=== PATIENT | female | born 1955 | race Caucasian/White ===

== ENCOUNTER → 2019-01-23 | Outpatient (CLI) | payer BC | LOC: ZCOL.LAB 11:46 | DX: E11.621 Type 2 diabetes mellitus with foot ulcer (principal) ==

== ENCOUNTER → 2019-08-23 | Outpatient (CLI) | payer BC | LOC: ZCOL.LAB 14:37 → COL.LAB 14:37 | DX: E11.621 Type 2 diabetes mellitus with foot ulcer (principal); E11.69 Type 2 diabetes mellitus with other specified complication; M86.9 Osteomyelitis, unspecified; L97.509 Non-pressure chronic ulcer of other part of unspecified foot with unspecified severity ==

== ENCOUNTER → 2019-11-15 | Outpatient (CLI) | payer BC | LOC: ZCOL.LAB 15:03 | DX: E11.621 Type 2 diabetes mellitus with foot ulcer (principal); T14.8XXA Other injury of unspecified body region, initial encounter ==

== ENCOUNTER 2020-06-16 11:03 | Emergency (ER) | payer OTHER ==
[~2020-06-16] VITALS: Ht 154.9 cm; Wt 44.5 kg
[2020-06-16 11:11] VITALS: TEMP 98.7
[2020-06-16] MEDS ORDERED: PLAVIX 75MG TAB75 MG PO (11:24)
[2020-06-16] MEDS ORDERED: PRINIVIL5 MG PO (11:24)
[2020-06-16] MEDS ORDERED: COREG 6.256.25 MG/TA PO (11:25)
[2020-06-16] MEDS ORDERED: LIPITOR 80MG80 MG PO (11:25)
[2020-06-16] MEDS ORDERED: BUMEX 1MG TA1 MG/TA1 PO (11:25)
[2020-06-16] MEDS ORDERED: GLUCOPHAGE XR500 M1 PO (11:26)
[2020-06-16] MEDS ORDERED: NEURONTIN300 MG/CAP PO (11:26)
[2020-06-16] MEDS ORDERED: K-DUR20 MEQ PO (11:27)
[2020-06-16] MEDS ORDERED: PHENERGAN 25 TA25 MG PO (11:27)
[2020-06-16 12:25] LABS: ARTERIAL BLD GAS O2 SATURATION 97.3 % (92-100); ARTERIAL BLD GAS TCO2 CT 14.6; ARTERIAL BLOOD GAS BASE EXCESS -10.4 (-2-2); ARTERIAL BLOOD GAS HCO3 13.8 meq/L (22-26); ARTERIAL BLOOD GAS PCO2 25.1 mmHg (35-45); ARTERIAL BLOOD GAS PO2 95.6 mmHg (80-100); ARTERIAL BLOOD GAS pH 7.36 (7.35-7.45)
[2020-06-16 12:25] LABS: MEAN CELL VOLUME 95 fl (80.0-100.0); MEAN CORPUSCULAR HGB CONC 32 g/dl (33.0-37.0); MEAN PLATELET VOLUME 8.7 fl (7.4-10.4); PLATELET COUNT 888 K/mm3 (130-400); RED BLOOD COUNT 2.54 M/mm3 (4.10-5.30); REDCELL DISTRIBUTION WIDTH-CV 14.3 % (11.5-14.5)
[2020-06-16 12:32] LABS: HEMATOCRIT 24.1 % (37.0-47.0); HEMOGLOBIN 7.6 g/dl (12.5-16.0); MEAN CORPUSCULAR HEMOGLOBIN 30 pg (27.0-31.0)
[2020-06-16 12:41] LABS: ALBUMIN 2.9 gm/dL (3.5-5.0); BILIRUBIN,TOTAL 0.6 mg/dL (0.0-1.0); CALCIUM 8.3 mg/dL (8.4-10.2); CREATININE, serum 1.08 (0.52-1.25); POTASSIUM 3.8 mmol/L (3.4-5.0); TOTAL PROTEIN 6.7 gm/dL (6.4-8.2)
[2020-06-16 12:50] LABS: BAND 19 % (0-10); HYPOCHROMIA 3+; LYMPHOCYTE 1 % (20.0-51.0); METAMYELOCYTE 1 % (0-0); NEUTROPHILS 77 % (42.0-75.2); PLATELET ESTIMATE INCREASED (NORMAL)
[2020-06-16 16:13] LABS: COLLECTION METHOD CLEAN CATCH
[2020-06-16 16:24] LABS: PH 5 (5-8); SQUAMOUS EPITHELIAL 0-2 /hpf; URINE APPEARANCE Hazy; URINE BACTERIA None Seen /hpf; URINE BILIRUBIN Negative (NEGATIVE); URINE BLOOD 2+ (NEGATIVE); URINE COLOR Yellow; URINE GLUCOSE Negative (NEGATIVE); URINE KETONE Trace (NEGATIVE); URINE LEUKOCYTE ESTERASE Negative (NEGATIVE); URINE NITRATE Negative (NEGATIVE); URINE PROTEIN(semi-quant) Negative (NEGATIVE); URINE RBC 20-50 /hpf; URINE UROBILINOGEN Negative (NEGATIVE)
[2020-06-16 18:12] VITALS: BP 115/62; PULSE 124
== END 2020-06-16 18:15 | disposition short-term general hospital (02) ==
LOC: COL.ER 11:03
PROVIDERS: Family Medicine
DX: D72.829 Elevated white blood cell count, unspecified (principal); I25.10 Atherosclerotic heart disease of native coronary artery without angina pectoris; Z88.2 Allergy status to sulfonamides; Z88.1 Allergy status to other antibiotic agents; Z79.02 Long term (current) use of antithrombotics/antiplatelets; Z79.84 Long term (current) use of oral hypoglycemic drugs
CPT/HCPCS: J7030; J7120

== ENCOUNTER 2020-07-02 13:12 | Inpatient (IN) | payer OTHER ==
[~2020-07-02] VITALS: Ht 154.9 cm; Wt 50.0 kg
[~2020-07-02 13:12] MED LIST: BUMEX 1MG TA1 MG/TA1 PO; COREG 6.256.25 MG/TA PO; GLUCOPHAGE XR500 M1 PO; K-DUR20 MEQ PO; LIPITOR 80MG80 MG PO; NEURONTIN300 MG/CAP PO; PHENERGAN 25 TA25 MG PO; PLAVIX 75MG TAB75 MG PO; PRINIVIL5 MG PO
[2020-07-02] MEDS ORDERED: SENOKOT S 50 MG1 TAB PO (14:57)
[2020-07-02] MEDS ORDERED: PERCOCET 325 MG1 TAB PO (15:00)
[2020-07-02] MEDS ORDERED: ASPIRIN 81M81 MG/TA2 PO (15:09)
[2020-07-02] MEDS ORDERED: MASON NATURAL2000 IU PO (15:12)
[2020-07-02 16:00] VITALS: BP 171/89; PULSE 96; TEMP 98.5
[2020-07-02] MEDS ORDERED: CYANOCOBAL1000 MCG/M (16:00)
[2020-07-02] MEDS ORDERED: MELATIN 3 MG-11 TAB PO (16:29)
[2020-07-02] MEDS ORDERED: PROTONIX 40MG T40 MG PO (16:30)
[2020-07-02] MEDS ORDERED: ZOSYN 4 GM-0.51 PD1 IV (16:35)
[2020-07-02] MEDS ORDERED: VANCOMYCIN 11 G/VIA1 IV (16:37)
--- NOTE | 2020-07-02 19:47 | NUR ---
RECEIVED CHANGE OF SHIFT REPORT FROM DAY SHIFT NURSE.
--- NOTE | 2020-07-02 21:41 | NUR ---
Patient arrived this afternoon from [facility] via wheelchair. Her weight was taken and she was placed in room #337. Patient required a ilya lift to be able to transfer from the wheelchair to her recliner. Patient's was placed on the visitor list and he was able to come stay with patient for a short period of time. 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 Patient has right arm swelling and this was addressed prior to coming to [facility]. They did an ultra sound study, MRI, Xrays and all results showed swelling but no other findings per report that was received by MARKY Kapoor at [place]. Patient has a Hx of CHF and will be placed on daily weights. Patient arrived with a stage II on her right buttock cheek. She has a mepilex in place. Patient had her last BM yesterday per nurse. This information was communicated to the night nurse.
[2020-07-03 05:19] VITALS: BP 149/86; PULSE 96; TEMP 98.7
--- NOTE | 2020-07-03 07:36 | NUR ---
CHANGE OF SHIFT REPORT GIVEN TO DAY SHIFT NURSEBALWINDER.
--- NOTE | 2020-07-03 10:04 | NUR ---
PT RESTING IN BED AT BEDSIDE SHIFT REPORT. DENIED PAIN AT THIS TIME. IV ZOSYN COMPLETED AND IV STOPPED.
--- NOTE | 2020-07-03 10:06 | NUR ---
DR. NOBLES CALLED WITH NO ANSWER. MID-LEVEL LUCA CALLED, PT CRYING OUT IN PAIN AFTER GETTING UP TO COMMODE WITH OT. PT GIVEN PERCOCET AND HOUR LATER STILL IN PAIN, MID-LEVEL ORDERED PRN MORPHINE VIA IV. 30 MINUTES AFTER INFUSION PT CONTINUES TO CRY OUT IN PAIN. ICE THERAPY APPLIED AND EXTREMITY HAS BEEN ELEVATED. DR. NOBLES TO FOLLOW UP WITH PT.
[2020-07-03] MEDS ORDERED: GLUCOPHAGE1000 MG PO (10:50)
--- NOTE | 2020-07-03 13:42 | NUR ---
Vancomycin Initial Dosing Pharmacy Note Ordering provider: Aakash Schuler MD Indication/duration: DM foot wounds LABS: SCr 0.59, GFR >60, Vancomycin trough (06/29/20 from outside facility) 11.7 Recommendation: Continue Vancomycin 1 gm IV q24h and check a Vancomycin trough on 07/04/20. Pharmacy will continue to closely monitor. Maintenance dose: 1 gram every 24 hours Trough goal: 10-15 ug/mL
--- NOTE | 2020-07-03 19:30 | NUR ---
Patient resting in bed. Vancomycin infusing to PICC. at [facility]. No complaints at this time.
--- NOTE | 2020-07-03 19:31 | NUR ---
PT CALMED DOWN ONCE THERAPIES WERE DONE. STATED SHE FELT LIKE THE PAIN MEDICATION WAS FINALLY WORKING. PT DID NOT C/O MUCH PAIN THROUGHOUT THE AFTERNOON WHEN WAS THERE. ROLLED TO GET ONTO BEDPAN WITHOUT COMPLAINT. RECEIEVED PRN PERCOCET THREE TIMES TODAY. AND FENTANYL PATCH APPLIED TO LEFT UPPER CHEST TODAY. NEW DRSG PLACED TO BUTTOCKS PRESSURE INJURY. PT HAD LOOSE STOOL TODAY.
--- NOTE | 2020-07-04 01:03 | NUR ---
Patient had bowel movement in bed casanova. Charisse care provided.
--- NOTE | 2020-07-04 04:35 | NUR ---
Patient called complaining of an upset stomach. Patient vomitted once. Called YESICA Echeverria, and she gave an order for zofran. Patient was cleaned up and zofran was administered.
[2020-07-04 05:03] VITALS: BP 135/73; PULSE 72; TEMP 97.2
--- NOTE | 2020-07-04 06:24 | NUR ---
Patient still feeling a little nauseous but has not thrown up again.
[2020-07-04 06:40] LABS: BASO # 0.1 (0.0-0.2); BASO % 0.8 % (0.0-2.0); EOS # 0.4 (0.0-0.7); EOS % 2.8 % (0-4.0); GRAN # 13.6 (1.4-6.5); GRAN % 87.9 % (42.2-75.2); LYMPH # 0.5 (1.2-3.4); LYMPH % 3.2 % (20.0-51.0); MEAN CELL VOLUME 92 fl (80.0-100.0); MEAN CORPUSCULAR HGB CONC 33 g/dl (33.0-37.0); MONO # 0.7 (0.1-0.6); MONO % 4.5 % (1.7-9.3); PLATELET COUNT 454 K/mm3 (130-400); RED BLOOD COUNT 2.73 M/mm3 (4.10-5.30); REDCELL DISTRIBUTION WIDTH-CV 15.7 % (11.5-14.5)
[2020-07-04 06:47] LABS: HEMATOCRIT 25.2 % (37.0-47.0); HEMOGLOBIN 8.2 g/dl (12.5-16.0); MEAN CORPUSCULAR HEMOGLOBIN 30 pg (27.0-31.0)
[2020-07-04 06:55] LABS: ALANINE AMINOTRANSFERASE 8 U/L (4-34); ALBUMIN 2.2 gm/dL (3.5-5.0); ALKALINE PHOSPHATASE 94 U/L (50-136); ANION GAP 4 mmol/L (7-16); AST,SGOT 20 U/L (15-37); BILIRUBIN,TOTAL 0.4 mg/dL (0.0-1.0); BLOOD UREA NITROGEN 11 mg/dL (7-17); CARBON DIOXIDE 26 mmol/L (22-30); CHLORIDE 103 mmol/L (98-107); CREATININE, serum 0.62 (0.52-1.25); GLUCOSE 134 mg/dL (74-106); POTASSIUM 3.8 mmol/L (3.4-5.0); SODIUM 133 mmol/L (137-145); TOTAL PROTEIN 5.5 gm/dL (6.4-8.2)
[2020-07-04 07:08] LABS: TROPONIN-I < 0.012 ng/mL (0.000-0.035)
--- NOTE | 2020-07-04 13:05 | NUR ---
SW met with patient to conduct intake evaluation. Patient lives at home in [place] with her Gerber (P# [phone]) and daughter Deyanira (P# [phone]). Prior to amputation, patient was independent with activity and required no DME. Patient's PCP is Nikki Carroll, and she uses [facility] for medications. Patient plans to return home with Gerber and Deyanira after discharge from [facility]. Patient would like to obtain information regarding prothesis for her right leg and supports for missing left toes. Patient does not have DPOA-HC. Patient states she will have to think about filling out paperwork. Please check back with patient 07/05. Patient denies any further questions or concerns at this time. Social work will continue to follow.
--- NOTE | 2020-07-04 15:19 | NUR ---
Patient's contacted LIBERTY due to medical necessity of an xray done on his . SW stated that the physician would determine medical necessity and that would need to call to speak with MD Monday to inquire. reported that he had been filling out paperwork for disability for his in [place] and wanted to know the status of paperwork. SW advised that call his contact to disability for information as case management would not have access to these records.
[2020-07-04 17:22] VITALS: BP 131/60; PULSE 102; TEMP 98.7
--- NOTE | 2020-07-04 18:24 | NUR ---
PATIENT HAD EPISODE OF UPSET STOMACH AND NAUSEA AT THE BEGINNING OF SHIFT. PATIENT GIVEN PRN IV ZOFRAN. PATIENT REFUSED VITAMINS DUE TO UPSET STOMACH, BUT OTHERWISE TOOK ALL OTHER SCHEDULED MEDICATIONS. PATIENT PROVIDED WITH PAIN MEDICATION AND REPOSITIONING NEEDED THROUGHOUT THE SHIFT. RUE AND RLE ELEVATED ON PILLOWS. ICE PACKS TO RUE AND LLE. CALL LIGHT WITHIN REACH. WILL REPORT OFF TO ONCOMING NURSE.
[2020-07-04 18:41] LABS: CREATININE, serum 0.68 (0.52-1.25)
--- NOTE | 2020-07-05 | NUR ---
PT RESTING IN BED.A&OX4. PLEASANT AND COOPERATIVE. SEE DRSG CHANGE COMPLETED TO BLE'S. PT TOLERATED WELL. CHANGED SACRAL DRSG WELL. SEE MAR FOR PAIN MEDS GIVEN. SHIFT ASSESSMENT COMPLETED. PT RUE SWOLLEN- PT REPORTED HAD AN INJURY TO IT. NO FRACTURE, JUST TISSUE DAMAGE. PREVENTS [place] PLANNER AND LIMITS ROM. PT TURNED FREQUENTLY TO OFF SET PRESSURE TO SACRAL AREA.
[2020-07-05 06:05] VITALS: BP 138/55; PULSE 91; TEMP 98
[2020-07-05 06:35] LABS: BASO # 0.1 (0.0-0.2); EOS # 0.4 (0.0-0.7); EOS % 3.8 % (0-4.0); GRAN # 8.6 (1.4-6.5); GRAN % 79.7 % (42.2-75.2); LYMPH # 0.8 (1.2-3.4); LYMPH % 7.3 % (20.0-51.0); MEAN CELL VOLUME 95 fl (80.0-100.0); MEAN CORPUSCULAR HGB CONC 32 g/dl (33.0-37.0); MEAN PLATELET VOLUME 8.2 fl (7.4-10.4); MONO # 0.8 (0.1-0.6); MONO % 7.6 % (1.7-9.3); PLATELET COUNT 434 K/mm3 (130-400); REDCELL DISTRIBUTION WIDTH-CV 15.5 % (11.5-14.5)
[2020-07-05 06:40] LABS: HEMATOCRIT 23.7 % (37.0-47.0); HEMOGLOBIN 7.6 g/dl (12.5-16.0); MEAN CORPUSCULAR HEMOGLOBIN 30 pg (27.0-31.0)
--- NOTE | 2020-07-05 14:55 | NUR ---
Patient tolerated diet well this shift. No reports of nausea. Patient was a two person assist with using the ilya lift to the bed side commode and back to her bed. Patient also was a one person assist to a standing position using gait belt. Patient was not able to be lifted by staff and she was weight until the bed was placed in a high enough position so patient could stand on her left foot with camboot. She was able to stand for 52 seconds with this nurse holding on to her. She was then positioned back in bed. Nurse reviewed exercises with patient that she had been given by therapy and patient reported that she would be doing those exercises through the day. Patient demonstrated the excercises to this nurse. Patient has ice applied to right leg and to right arm at this time. Patient still has edema to the right upper inner arm, but is not red or warm. Patient's stopped by this morning and dropped off some rainey and misc. items for patient and patient's took her dirty blanket home to be washed. Will continue to monitor.
[2020-07-05 18:34] VITALS: BP 142/71; PULSE 100; TEMP 98.6
--- NOTE | 2020-07-05 19:22 | NUR ---
Patient tolerated her supper well. Currently resting in bed, call light in reach and bed alarm set.
--- NOTE | 2020-07-05 20:30 | NUR ---
PT RESTING IN BED. NO DISTRESS. TALKING ON HER CELL PHONE. NO NEEDS AT THIS TIME. CALL LIGHT IN REACH BED ALARM SET.
--- NOTE | 2020-07-05 21:48 | NUR ---
PT C/O NAUSEA. GAVE ZOFRAN IV. SEE MAR.
[2020-07-06 04:09] VITALS: BP 135/62; PULSE 94; TEMP 98.6
--- NOTE | 2020-07-06 05:26 | NUR ---
PT HAS RESTED PERIODICALLY THROUGH THE NIGHT. PAIN CONTROLLED WITH FENTANYL PATCH TO LT CHEST AND PERCOCET FOR BREAKTHROUGH PAIN.
[2020-07-06 06:09] LABS: BASO # 0.1 (0.0-0.2); BASO % 1.3 % (0.0-2.0); EOS # 0.4 (0.0-0.7); EOS % 4.5 % (0-4.0); GRAN # 7.2 (1.4-6.5); GRAN % 77.6 % (42.2-75.2); LYMPH # 0.7 (1.2-3.4); LYMPH % 7.3 % (20.0-51.0); MEAN CELL VOLUME 94 fl (80.0-100.0); MEAN CORPUSCULAR HGB CONC 33 g/dl (33.0-37.0); MONO # 0.8 (0.1-0.6); MONO % 8.8 % (1.7-9.3); PLATELET COUNT 435 K/mm3 (130-400); RED BLOOD COUNT 2.49 M/mm3 (4.10-5.30); REDCELL DISTRIBUTION WIDTH-CV 15.4 % (11.5-14.5)
--- NOTE | 2020-07-06 06:16 | NUR ---
PT NAUSEATED AGAIN. ZOFRAN GIVEN. PT PALE. LAB HERE FOR AM BLOOD DRAW. HGB YESTERDAY 7.6.
[2020-07-06 06:22] LABS: HEMATOCRIT 23.4 % (37.0-47.0); HEMOGLOBIN 7.6 g/dl (12.5-16.0); MEAN CORPUSCULAR HEMOGLOBIN 31 pg (27.0-31.0)
[2020-07-06 06:30] LABS: ALBUMIN 2.3 gm/dL (3.5-5.0); BILIRUBIN,TOTAL 0.3 mg/dL (0.0-1.0); C-REACTIVE PROTEIN 3.8 mg/dL (0.0-0.9); CALCIUM 7.9 mg/dL (8.4-10.2); CREATININE, serum 0.63 (0.52-1.25); MAGNESIUM 1.2 mg/dL (1.6-2.3); POTASSIUM 3.6 mmol/L (3.4-5.0); TOTAL PROTEIN 5.4 gm/dL (6.4-8.2)
--- NOTE | 2020-07-06 10:01 | NUR ---
PT SLEEPING IN BED AT BEDSIDE SHIFT REPORT. PT ASSISTED TO SCOOT UP IN BED AND REPORTED NEEDING PAIN MEDICATION AT THIS TIME. PT WAS GIVEN PRN PERCOCET AND FENTANYL PATCH CHANGED, NEW APPLIED TO RT UPPER CHEST. PT REPORTED HAVING INCONTINENT STOOL THIS NURSE WAS IN THE ROOM WITH HER. OT AND SECURITY TEST ENGINEER ASSISTED IN CLEANING HER UP.
--- NOTE | 2020-07-06 11:15 | NUR ---
Patient admitted with PICC left upper arm dressing dated 06/27/2020. According to the patient, PICC was placed in [place]. Left upper arm PICC dressing change done with insertion site cleansed with chloraprep x 1, gauze removed, chlorhexidine impregnated disk applied, skin prep, stat lock, and tegaderm applied. cap changed and port flushed with 10ml normal saline with good blood return noted. no signs or symptoms of IV complications noted. no concerns voiced.
--- NOTE | 2020-07-06 15:22 | NUR ---
Admission QIM scores were reviewed by the team. Code of 5 chosen for oral hygiene was determined by team discussion to be the most usual performance before interventions for this patient during the assessment period. Code of 1 chosen for toilet hygiene was determined by team discussion to be the most usual performance for this patient during the assessment period. Code of 2 chosen for upper body dressing was determined by team discussion to be the most usual performance for this patient during the assessment period. Code of 2 chosen for rolling left to right was determined by team discussion to be the most usual performance for this patient during the assessment period.--Echo Champagne, PD
[2020-07-06 16:41] VITALS: BP 133/63; PULSE 90; TEMP 98.3
--- NOTE | 2020-07-06 18:45 | NUR ---
RECEIVED CHANGE OF SHIFT REPORT FROM DAY SHIFT NURSE.
--- NOTE | 2020-07-06 20:23 | NUR ---
PT RECEIEVED PRN PERCOCET 3 TIMES TODAY. ICE THERAPY UTILIZED TO RBKA AND RT ELBOW SOFT TISSUE INJURY WELL. DRSG CHANGED TO PICC ON LUE AND CAPS CHANGED WELL TODAY 07/06. DRSG TO RBKA AND LTMT AMP CHANGED TODAY. XEREFORM, 4X4, ABD, KERLIX, AND SHAQ WRAPS APPLIED TO BOTH BLE. NEW DRSG PLACED TO UNSTAGEABLE PRESSURE INJURY TO BUTTOCKS WELL. PHOTOS OF BLE INCISIONS WERE EMAILED TO DR. GONZALEZ AND [email or web address]
[2020-07-07 05:10] VITALS: BP 149/69; PULSE 95; TEMP 98.7
[2020-07-07 07:05] LABS: BASO # 0.1 (0.0-0.2); BASO % 1.2 % (0.0-2.0); EOS # 0.3 (0.0-0.7); EOS % 3.1 % (0-4.0); GRAN # 8.4 (1.4-6.5); GRAN % 81.7 % (42.2-75.2); LYMPH # 0.6 (1.2-3.4); LYMPH % 5.8 % (20.0-51.0); MEAN CELL VOLUME 94 fl (80.0-100.0); MEAN CORPUSCULAR HGB CONC 33 g/dl (33.0-37.0); MEAN PLATELET VOLUME 8.2 fl (7.4-10.4); MONO # 0.8 (0.1-0.6); MONO % 7.7 % (1.7-9.3); PLATELET COUNT 506 K/mm3 (130-400); RED BLOOD COUNT 2.47 M/mm3 (4.10-5.30); REDCELL DISTRIBUTION WIDTH-CV 15.7 % (11.5-14.5)
[2020-07-07 07:07] LABS: HEMATOCRIT 23.2 % (37.0-47.0); HEMOGLOBIN 7.6 g/dl (12.5-16.0); MEAN CORPUSCULAR HEMOGLOBIN 31 pg (27.0-31.0)
--- NOTE | 2020-07-07 07:36 | NUR ---
CHANGE OF SHIFT REPORT GIVEN TO DAY SHIFT NURSEROHINI.
--- NOTE | 2020-07-07 15:36 | NUR ---
Doughnut Batter Mixer contacted the patient's , Gerber to set up family meeting. Gerber was agreeable to a meeting at 2:30 pm on 07/08. SW contacted the patient's daughter Twila, she was agreeable. SW contacted the patient's daughter, Georgette, left message. LIBERTY collaborated the above information with BECKI Dodge Director.
--- NOTE | 2020-07-07 16:13 | NUR ---
Removed patients patch to her left chest this afternoon due to new order from Dr. Schuler to DC Fentanyl patch. This was DC'd due to the nausea.
[2020-07-07 17:20] VITALS: BP 144/75; PULSE 98; TEMP 98.2
--- NOTE | 2020-07-07 19:30 | NUR ---
RECEIVED CHANGE OF SHIFT REPORT FROM DAY SHIFT NURSE.
--- NOTE | 2020-07-07 20:00 | NUR ---
DECREASED ROM/STRENGTH TO RUE D/T JOINT SWELLING/PAIN FROM FALL/CONTACT INJURY, REPORTS SOME NUMBNESS TO RUE D/T INJURY. ABLE TO WIGGLE RIGHT HAND FINGERS SLIGHTLY ON COMMAND, RUE ELEVATED FOR COMFORT AND SWELLING. CONTINUES TO USE COLD PACK TO RUE NEEDED REPORTING SOME RELIEF. R HAND MEAT PICKLER WEAK COMPARED TO L HAND MEAT PICKLER. PATIENT USES PURE WICK AT NIGHT, FATIGUED AT NIGHT DUE TO PT/OT TREATMENT REGIMENS. BED ALARM ON.
--- NOTE | 2020-07-07 20:03 | NUR ---
Patient resting in bed, call light in reach and bed alarm set. Patient attended all therapies today. She used her call light appropriatly. She was a two person transfer to the toilet requiring staff to hold her with gait belt while she pivot transferred to and from the [facility] Patient was dependent with dressing lower extremities. Patient had nausea this afternoon and was given IV Zofran with good effect. See new order for Zofran PO per Dr. Schuler. Dr. Schuler ordered for Fentanyl patch to be DC'd due to patient having nausea. Right arm continues to have 3rd spacing swelling. She has been elevating that arm and applying ice as needed. Will continue to monitor. Patient's bilateral leg dressings are changed MWF so will be changed out tomorrow. This nurse did not observe any drainage to the dressings. The stool occult blood was completed see results in chart. Patient uses a Periwick at HS. Patient was started on Iron due to low HGB. See new orders per Dr. Schuler to start iron BID. This nurse reported off to night nurse.
--- NOTE | 2020-07-08 01:06 | NUR ---
PATIENT REPOSITIONED UP IN BED AFTER TURNED FROM SIDE TO SIDE TO HAVE PURE WICK REPLACED AFTER REPORTING "I DON'T THINK THIS IS WORKING". PURE WICK REPLACED WITH NEW WICK/PLACED TO PERIAREA WITH PATIENT STATING "THAT FEELS LIKE THAT ONE IS WORKING". DENIES ANY OTHER NEEDS BED ALARM ON.
[2020-07-08 05:11] VITALS: BP 141/67; PULSE 93; TEMP 98.1
--- NOTE | 2020-07-08 14:43 | NUR ---
Patient attended all therapies today. Patient currently resting in bed, call light in reach and bed alarm set. Dressings were changed to bilateral legs observing some bloody drainage to the left foot and RBKA incisions. Area was cleaned per protocol and dressing was changed. Patient tolerated well. She continues to have pain to her bilateral legs and has been given prn Percocet with some effect. Patient denies nausea at this time. Blood sugars did not require insulin this morning or afternoon. Patient is independent with eating only requiring some items to be opened. Patient had a loose BM this morning that was continent, but had a large loose incontinent BM when working with OT this afternoon. Will continue to monitor. Patient is on antibiotics for MERCA and is tolerating ok at this time.
--- NOTE | 2020-07-08 15:38 | NUR ---
District Commercial Superintendent attended family meeting. Present were Echo, IPR director, PT/OT/ST and the patient's three daughters and were on speaker phone. Echo began meeting stating it purpose. The team reviewed the patient's progress. The team recommends a re-evaluation next week. All question and concerns were addresssed. After family meeting LIBERTY met with the patient to review Team Conference Note. The patient has no questions at this time.
[2020-07-08 17:16] VITALS: BP 145/71; PULSE 93; TEMP 98.9
--- NOTE | 2020-07-08 20:00 | NUR ---
PT CONTINUES ISOLATION FOR MRSA. PT RESTING IN BED. A&OX4. QUIET TONIGHT. COLOR PALE. HBG 7.6 LAST READING. ON IRON. HAVING LOOSE LIQ STOOLS- POSSIBLE C-DIFF. CALLED LIGIA WOODARD FOR STOOL SPECIMEN ORDER. SEE ORDER. COCCYX DRSG INTACT. SEE MAR FOR PRN MEDS GIVEN. BLE ELVATED ON PILLOWS. RUE STILL SWOLLEN- 3RD SPACE EDMA- ELEVATED ON PILLOW. CALL LIGHT IN REACH.
[2020-07-08 22:42] LABS: CLOSTRIDIUM DIFF A/B NEG; CLOSTRIDIUM DIFF A/B INTERP No C.diff present
[2020-07-09 05:31] VITALS: BP 135/61; PULSE 107; TEMP 98.7
--- NOTE | 2020-07-09 09:25 | NUR ---
PT RESTING IN BED AT BEDSIDE SHIFT REPORT. PT REQUESTING ANTIDIARRHEALS THIS AM. PT REPORTED 5/10 PAIN LEVEL AND RECEIEVED PRN PERCOCET THIS AM PRIOR TO THERAPY. REPORTS FEELING LIKE A LAWRENCE HORSE ON BACKSIDE OF RIGHT THIGH.
--- NOTE | 2020-07-09 14:13 | NUR ---
Mva Reactor Operator collaborated with Ethel Cox with to have releases signed and signature page signed for insurance application.
--- NOTE | 2020-07-09 15:52 | NUR ---
PT ASSISTED TO BEDSIDE COMMODE USING SLIDE BOARD. THERAPY WORKED ON SLIDE BOARD FROM WC TO BED BUT NOT COMMODE. PT REQUIRED MUCH ASSISTANCE, NRSG WILL WAIT UNTIL THERAPY HAS WORKED ON THIS MORE. PT'S ALLEVYN DRSG TO UNSTAGEABLE PRESSURE INJURY WAS SATURATED. QUATER SIZED AREA AROUND UNSTAGEABLE PRESSURE INJURY RED AND BLANACHABLE. OTHER LARGE AREA MIDLINE OF BLANCHABLE REDNESS NOTED TOO. PT CLEANSED AND DRIED, BARRIER CREAM APPLIED AND NEW ALLEVYN PLACED.
[2020-07-09 15:53] LABS: CALCIUM 8.1 mg/dL (8.4-10.2); CREATININE, serum 0.61 (0.52-1.25); MAGNESIUM 1.3 mg/dL (1.6-2.3); POTASSIUM 3.8 mmol/L (3.4-5.0)
[2020-07-09 17:20] VITALS: BP 143/67; PULSE 90; TEMP 98.7
--- NOTE | 2020-07-09 19:51 | NUR ---
PT GIVEN PRN PERCOCET AROUND 1700 FOR 10/10 REPORTED PAIN. IV MAG STARTED AND CONTINUES ONTO NEXT SHIFT.
--- NOTE | 2020-07-09 20:49 | NUR ---
PT RESTING IN BED, WATCHING TV. MAG 4MG IV HUNG BY DAY SHIFT NURSE. DENIES ANY C/O AT THIS TIME. CALL LIGHT IN REACH.
--- NOTE | 2020-07-10 00:15 | NUR ---
PT WATCHING MOVIES ON HER PHONE. DENIES NAUSEA. HUNG ZOSYN 4.5GM AFTER FLUSHING PICC WITH NS. PERIWICK PLACED. CLEAR, YELLOW URINE RETURNS. LEFT FOOT WITH SHAQ WRAP INTACT. RLE WITH IMMOBLIZER IN PLACE. CALL LIGHT IN REACH. BED ALARM ON.
[2020-07-10 05:51] VITALS: BP 141/74; PULSE 95; TEMP 98.7
--- NOTE | 2020-07-10 06:52 | NUR ---
PT AWAKENS TO VERBAL STIMULI. STATES SHE SLEPT WELL. DENIES ANY C/O. PURWICK REMAINS IN PLACE. CALL LIGHT IN REACH.
[2020-07-10 16:22] VITALS: BP 141/77; PULSE 96; TEMP 98.4
--- NOTE | 2020-07-10 19:52 | NUR ---
PT A/O X4, DENIES PAIN OR DISCOMFORT. NO S/S OF INFECTION AT THIS TIME. PT GETTING ZOSYN. PT ASSISTED TO BEDSIDE COMMODE X2. CALL LIGHT WITHIN REACH.
[2020-07-11 05:53] VITALS: BP 147/83; PULSE 89; TEMP 98.9
--- NOTE | 2020-07-11 06:26 | NUR ---
PT HAD SOME PAIN THIS SHIFT THAT WAS CONTROLLED WITH PERCOCET. PT HAD NO OTHER ISSUES OR CONCERNS NOTED. PT RESTING IN BED WATCHING TV. CALL LIGHT WITHIN REACH AND BED ALARM ON.
--- NOTE | 2020-07-11 07:14 | NUR ---
PT RESTING IN BED AT BEDSIDE SHIFT REPORT. CALLED IN A NEW ORDER FOR BREAKFAST THIS AM.
--- NOTE | 2020-07-11 15:02 | NUR ---
DRSG CHANGE TO BLE TO BE DONE MWF. PT REPORTED IT WAS NOT DONE YESTERDAY AND NO NOTES WERE DONE ON PT THE ENTIRE SHIFT. THIS NURSE CHANGED BOTH DRSGS. CLEANSED WITH NS, USED XEREFORM, 4X4'S, ABD ONLY TO LLE, THEN KERLIX, AND SHAQ ON BOTH. NO DRAINAGE NOTED TO RLE AND MOD AMOUNT OF SANGUINEOUS DRAINAGE TO NOTED TO MEDIAL SIDE OF LLE INCISION. DRSG TO PT'S UNSTAGEABLE PRESSURE INJURY TO COCCYX CDI. PT WAS ASSISTED TWO ASSIST USING SLIDE BOARD TO BEDSIDE COMMODE AND BACK. PT NEEDED A HEAVY ASSIST.
[2020-07-11 16:06] VITALS: BP 141/66; PULSE 88; TEMP 98.7
--- NOTE | 2020-07-11 18:17 | NUR ---
PT REQUESTED PRN ZOFRAN 3 SEPERATE TIMES TODAY AFTER MEALS. TRANSFERRED TO BEDSIDE COMMODE FOR SECOND TIME WITH SLIDE BOARD AND IS IMPROVING AT THIS TECHNIQUE.
--- NOTE | 2020-07-11 21:30 | NUR ---
SHIFT ASSESSMENT COMPLETE. RESTING IN BED. USES BEDPAN, HAS SOFT BM. PICC LINE INTACT IN UPPER LEFT ARM. BED ALARM ON. CALL LIGHT IN REACH. TAKES HS MEDS.
[2020-07-12 06:00] VITALS: BP 146/69; PULSE 86; TEMP 98.7
--- NOTE | 2020-07-12 07:06 | NUR ---
PT WAS MEDICATED X3 WITH PERCOCET, LAST TIME AT 0600. REQUEST AND GIVEN ZOFRAN X2 THIS SHIFT, LAST TIME AT 0600. PERWICK IN PLACE DURING THE NIGHT. REPORT GIVEN TO DAY SHIFT NURSE.
--- NOTE | 2020-07-12 08:55 | NUR ---
Pt resting in bed. She has had some breakfast, but stated that she is not a big breakfast eater. Requested no stool softener due to loose stools. Pressure ulcer to coccyx, dressing CDI. Pt has no pain complaints and overall states feels good. No other needs, will continue to monitor.
--- NOTE | 2020-07-12 14:52 | NUR ---
Assisted patient to the commode x2 assist. She does well standing, but is unable to move her left leg once it is on the ground. Small amount of loose stool. Assisted patient to bed. did bring a foam ring for her bottom. She states that it feels much better having it under her.
[2020-07-12 17:04] VITALS: BP 145/66; PULSE 97; TEMP 99.5
--- NOTE | 2020-07-12 18:55 | NUR ---
RECEIVED CHANGE OF SHIFT REPORT FROM DAY SHIFT NURSE. BED ALARM ON WHEN IN BED.
--- NOTE | 2020-07-12 20:00 | NUR ---
DECREASED ROM/STRENGTH TO RLE D/T R BKA, OBSERVE RIGHT ELBOW SWELLING STILL PRESENT WITH PATIENT ATTEMPTING TO INCREASE USE OF RUE WITH WIGGLE OF R HAND FINGERS PRESENT ON COMMAND. UP WITH CAM BOOT TO LLE WITH DRSG INTACT TO LTMT AMP. BED ALARM ON WHEN IN BED.
--- NOTE | 2020-07-13 03:39 | NUR ---
TURNED FROM SIDE TO SIDE FOR BEDPAN PLACEMENT ON AND OFF AND FOR DONUT CUSHION PLACEMENT. REQUESTED AND GIVEN PAIN MED FOR RLE PAIN, PAIN LEVEL 10/10. SEE eMAR FOR MED GIVEN. BED ALARM ON.
[2020-07-13 05:47] VITALS: BP 144/84; PULSE 87; TEMP 97.9
[2020-07-13 06:02] LABS: BASO # 0.1 (0.0-0.2); BASO % 0.9 % (0.0-2.0); EOS # 0.4 (0.0-0.7); EOS % 4.3 % (0-4.0); GRAN # 7.8 (1.4-6.5); GRAN % 78.7 % (42.2-75.2); LYMPH # 0.6 (1.2-3.4); LYMPH % 6.5 % (20.0-51.0); MEAN CELL VOLUME 98 fl (80.0-100.0); MEAN CORPUSCULAR HGB CONC 31 g/dl (33.0-37.0); MEAN PLATELET VOLUME 8.1 fl (7.4-10.4); MONO # 0.9 (0.1-0.6); MONO % 9.2 % (1.7-9.3); PLATELET COUNT 541 K/mm3 (130-400); RED BLOOD COUNT 2.55 M/mm3 (4.10-5.30); REDCELL DISTRIBUTION WIDTH-CV 17.1 % (11.5-14.5)
[2020-07-13 06:05] LABS: HEMOGLOBIN 7.8 g/dl (12.5-16.0); MEAN CORPUSCULAR HEMOGLOBIN 31 pg (27.0-31.0)
[2020-07-13 06:22] LABS: C-REACTIVE PROTEIN 5.5 mg/dL (0.0-0.9); CALCIUM 8.1 mg/dL (8.4-10.2); CREATININE, serum 0.67 (0.52-1.25); MAGNESIUM 1.8 mg/dL (1.6-2.3); POTASSIUM 3.8 mmol/L (3.4-5.0)
--- NOTE | 2020-07-13 07:14 | NUR ---
CHANGE OF SHIFT REPORT GIVEN TO DAY SHIFT NURSEDAMION. BED ALARM ON WHILE IN BED.
--- NOTE | 2020-07-13 09:15 | NUR ---
PICC intact left upper arm with sterile dressing change done with insertion site cleansed with chloraprep x 1, chlorhexidine impregnated disk applied, skin prep, stat lock, and tegaderm applied. no signs or symptoms of IV complications noted. no concerns voiced.
--- NOTE | 2020-07-13 16:00 | NUR ---
LIBERTY met with the patient to introduce oneself and to follow up after the weekend. The patient states that she is tired. She states that therapy is going well though, just feels slow. SW to continue to follow.
[2020-07-13 16:33] VITALS: BP 183/98; PULSE 93; TEMP 98.8
--- NOTE | 2020-07-13 18:00 | NUR ---
Patient has been doing well today. She got up to the wheel chair with PT twice today. Attempted to get her to sit in the chair today but she would not get up. She repositions herself well in the bed. Minimal complaints of pain. No complaints of nausea. No other changes at this time. Call light within reach.
--- NOTE | 2020-07-13 19:00 | NUR ---
RECEIVED CHANGE OF SHIFT REPORT FROM DAY SHIFT NURSE. BED ALARM ON WHILE IN BED.
--- NOTE | 2020-07-13 20:00 | NUR ---
DECREASED ROM/STRENGTH TO R BKA, BRACE IN PLACE WITH SHAQ CDI. SHAQ DRSG IN PLACE TO LEFT FOOT. PICC LINE IN PLACE/FLUSHES WELL. DENIES ANY NEEDS AT THIS TIME.
[2020-07-14 04:19] VITALS: BP 179/81; PULSE 94; TEMP 97.6
--- NOTE | 2020-07-14 07:41 | NUR ---
CHANGE OF SHIFT REPORT GIVEN TO DAY SHIFT NURSE, BALWINDER NEGRO.
--- NOTE | 2020-07-14 09:43 | NUR ---
PT SLEEPING IN BED AT BEDSIDE SHIFT REPORT. ZOSYN RUNNING AT THAT TIME. PT WAS ASSISTED THIS AM TO BEDSIDE COMMODE, PT HAD A SMAL LIQUIDY STOOL AND URINE OUTPUT. UNABLE TO OBTAIN UA AT THIS TIME B/C OF CONTAMINATION. PT REPORTED 7/10 PAIN LEVEL AND RECEIEVED PRN PERCOCET WELL PRN ZOFRAN FOR NAUSEA PT C/O.
[2020-07-14] MEDS ORDERED: TYLENOL 325MG325 MG PO (10:40)
--- NOTE | 2020-07-14 13:07 | NUR ---
PT PIC CAP CHANGED TO SINGLE LUMEN TODAY 07/14. PT HAS GOOD BLOOD RETURN AND FLUSH.
--- NOTE | 2020-07-14 15:02 | NUR ---
PT DRSG TO S2 ON COCCYX WAS CHANGED. ZINC APPLIED, AQUACELL AG, AND ALLEVYN DRSG. MEPILEX TO RT INNER THIGH S2 CDI AND LEFT IN [place]. RT POSTERIOR THIGH S2 MEPILEX AND ZINC APPLIED. PUREWICK CHANGE THIS AM. PT HAD HARD STOOL ON HER OWN ON BEDPAN AND WAS CLEANSED AND PUREWICK REAPPLIED.
[2020-07-14 17:23] VITALS: BP 142/62; PULSE 92; TEMP 98.6
--- NOTE | 2020-07-14 19:07 | NUR ---
RECEIVED CHANGE OF SHIFT REPORT FROM DAY SHIFT NURSE.
--- NOTE | 2020-07-14 20:00 | NUR ---
CONTINUES SHAQ DRESSING TO RBKA AND LTMT AMP SITES. DENIES PAIN AT THIS TIME, REQUESTING MED FOR NAUSEA WHEN NEXT AVAILABLE. PICC LINE IN PLACE. BED ALARM ON WHILE IN BED. VOIDS PER BEDPAN WHILE IN BED DURING LATE EVENING/NIGHT. DECREASED STRENGTH AND FULL RANGE OF MOTION TO RIGHT ELBOW DUE TO PAIN.
--- NOTE | 2020-07-15 03:27 | NUR ---
REQUESTING TO TAKE ZOFRAN AN HOUR PRIOR TO BREAKFAST.
[2020-07-15 06:06] VITALS: BP 174/80; PULSE 91; TEMP 98.3
--- NOTE | 2020-07-15 16:20 | NUR ---
LIBERTY contacted the patient's , Gerber, to review the IPR Team Conference Note. LIBERTY informed him of the patient's progress so far and how a d/c date has not been set yet. The team would like to have another patient/family meeting to update the patient's and to discuss any tentative plans. The team would also like to see if Gerber is available to be able to come in for a day for training. LIBERTY discussed this with Gerber and also informed Gerber how ID how been consulted and that the patient is going to tentatively need IV antibiotics when she leaves the hospital. Gerber raised his voice and sounded upset. Gerber reports he does not understand why the patient would still need IV antibiotics and would like a call from the doctor. He also reports that he works and needs a big notice before taking time off from work. He states that he can be available for a patient/family conference call tomorrow at 1500. LIBERTY informed IPR Director. LIBERTY asked the hospitalist to give the patient's a call. LIBERTY then met with the patient and reviewed the IPR Team Conference Note with her. She is agreeable to the above plan.
[2020-07-15 17:20] VITALS: BP 179/86; PULSE 104; TEMP 98.9
--- NOTE | 2020-07-15 19:45 | NUR ---
RECEIVED CHANGE OF SHIFT REPORT FROM DAY SHIFT NURSE. BED ALARM ON.
--- NOTE | 2020-07-15 19:45 | NUR ---
Patient attended all therapies today. Patient continues to have pain to her right arm that seems to effect her more then her bilateral legs. She has been given prn pain meds that have been effective. Patient had a few emotional calls with her daughter, this afternoon. Patient currently resting in bed, call light in reach and bed alarm set. Reported off to night nurse.
--- NOTE | 2020-07-15 20:00 | NUR ---
ROMELIA INSERT MOLDING OPERATOR EQUAL BUT WEAK, DOES NOT AMBULATE DUE TO PARTIAL LEFT FOOT AMP AND RUE WEAKNESS D/T R ELBOW PAIN WITH USE AND MOVEMENT. PICC LINE IN PLACE. DENIES ANY NEEDS AT THIS TIME. BED ALARM ON WHEN IN BED.
[2020-07-16 06:02] VITALS: BP 151/76; PULSE 95; TEMP 98.8
--- NOTE | 2020-07-16 07:10 | NUR ---
CHANGE OF SHIFT REPORT GIVEN TO DAY SHIFT NURSE, ROHINI NEGOR.
[2020-07-16 07:13] LABS: BASO # 0.1 (0.0-0.2); BASO % 1.2 % (0.0-2.0); EOS # 0.4 (0.0-0.7); GRAN # 5.6 (1.4-6.5); GRAN % 75.7 % (42.2-75.2); LYMPH # 0.6 (1.2-3.4); LYMPH % 7.5 % (20.0-51.0); MEAN CELL VOLUME 97 fl (80.0-100.0); MEAN CORPUSCULAR HGB CONC 32 g/dl (33.0-37.0); MEAN PLATELET VOLUME 8.2 fl (7.4-10.4); MONO # 0.7 (0.1-0.6); MONO % 9.1 % (1.7-9.3); PLATELET COUNT 531 K/mm3 (130-400); RED BLOOD COUNT 2.65 M/mm3 (4.10-5.30); REDCELL DISTRIBUTION WIDTH-CV 17.4 % (11.5-14.5)
[2020-07-16 07:32] LABS: HEMATOCRIT 25.7 % (37.0-47.0); HEMOGLOBIN 8.1 g/dl (12.5-16.0); MEAN CORPUSCULAR HEMOGLOBIN 31 pg (27.0-31.0)
[2020-07-16 14:07] LABS: COLLECTION METHOD CLEAN CATCH
[2020-07-16 14:12] LABS: PH 6 (5-8); SQUAMOUS EPITHELIAL None Seen /hpf; URINE APPEARANCE Clear; URINE BACTERIA Rare /hpf; URINE BILIRUBIN Negative (NEGATIVE); URINE BLOOD Negative (NEGATIVE); URINE COLOR Straw; URINE GLUCOSE Negative (NEGATIVE); URINE KETONE Negative (NEGATIVE); URINE LEUKOCYTE ESTERASE Negative (NEGATIVE); URINE NITRATE Negative (NEGATIVE); URINE PROTEIN(semi-quant) Negative (NEGATIVE); URINE RBC 0-2 /hpf; URINE UROBILINOGEN Negative (NEGATIVE)
--- NOTE | 2020-07-16 15:40 | NUR ---
SW attended a patient/family conference call. The patient's , Gerber, was on speaker phone. Also present was PT and OT. SW started by explaining the purpose of the meeting. PT & OT discussed the patient's progress so far and their goals for the patient. PT/OT plan on continuing working on transfers with the patient. SW informed the patient and Gerber how a d/c date and plans have not been established yet. Gerber reports that him and his daughter both work. He states that their daughter goes into work later and has some days off, so they could stagger times on who helps her at home. SW addressed the IV antibiotics and the options of outpatient IV antibiotics at a hospital or home antibiotics. The patient and Gerber report that it all depends on how often and long the antibiotics will be. The team answered all questions. SW to continue to follow.
[2020-07-16 16:47] VITALS: BP 146/79; PULSE 90; TEMP 98.5
--- NOTE | 2020-07-16 16:57 | NUR ---
Patient reporting that it is too difficult for her to swallow so she only would order drinks for her meals for tomorrow. This nurse will have Speech Therapy evaluate her tomorrow for any issues.
--- NOTE | 2020-07-16 20:00 | NUR ---
PT RESTING IN BED. DOZING. DENIES NEEDS AT THIS TIME. CONTINUED ISOLATION FOR MRSA. CALL LIGHT IN REACH. BED ALARM SET.
--- NOTE | 2020-07-16 20:17 | NUR ---
SEE ADDITIONAL NURSING ORDERS FROM TODAY THAT I DC'D (SCHEDULING NOTE) - THEY WERE FOR ANOTHER PATIENT
--- NOTE | 2020-07-16 20:20 | NUR ---
See additional nursing orders regarding ST to be contacted for ST follow up with patient's swallowing difficulty.
--- NOTE | 2020-07-16 20:20 | NUR ---
Patient attended all therapies today. Dressing to left foot was changed due to being loose. Area was observed and no drainage, redness were observed. Sutures are intact. Patient tolerated dressing change well. Patient continues to receive IV antibiotics. Dr. Clifton called to check in on patient today see his notes. Straight Cath was performed with 16 irish catheter to collect for a clean catch urine specimen for Dr. Clifton. This was sent to the lab. See results. Call placed to Yumiko regarding patient's MERCA Precaution status - she is to continue to stay on precautions at this time. Patient's blood draw was completed for her Vanc trough. See results. Reported off to night nurse.
[2020-07-17 05:52] VITALS: BP 146/68; PULSE 85; TEMP 98.3
--- NOTE | 2020-07-17 07:56 | NUR ---
PT RESTING IN BED AT BEDSIDE SHIFT REPORT. DENIES NAUSEA THIS AM AND REPORTS 5/10 PAIN IN RUE. PRN PERCOCET GIVEN PRIOR TO THERAPY. PT ASSISTED UTILIZING SLIDE BOARD TO BSC. PT DID WELL WITH A ONE MOD ASSIST.
--- NOTE | 2020-07-17 15:23 | NUR ---
PT'S DRESSSINGS CHANGED TO BLE. SILVER AG, 4X4'S, KERLIX, AND SHAQ WRAP TO BLE. NO DRAINAGE NOTED TO RLE AND SCANT DRIED DRAINAGE TO INCISION SITE, NONE SOILING THE BANDAGING TO THE LLE. EDGES WELL APPROXIMATED, AND SUTURES INTACT. NO INCREASED REDNESS, SWELLING, WARMTH NOTED.
[2020-07-17 17:19] VITALS: BP 161/73; PULSE 96; TEMP 98
--- NOTE | 2020-07-17 17:42 | NUR ---
PT ABLE TO TRANSFER USING SLIDE BOARD TO [facility] SBA WITH OCCASSIONAL TOUCH ASSIST. PT REPORTS PAIN OF 5/10 THIS EVENING. RECIEVED PRN PERCOCET TWICE THIS SHIFT. RECIEVED PRN ZOFRAN ONCE AND RECEIEVED A NEW PRESCRIPTION FOR A GAS RELIEF MEDICATION, GIVEN AROUND 1700.
[2020-07-18 04:16] VITALS: BP 152/70; PULSE 62; TEMP 99
--- NOTE | 2020-07-18 06:31 | NUR ---
GAVE ZOFRAN ODT PRIOR TO BREAKFAST. GAVE MYICON FOR C/O GAS.
--- NOTE | 2020-07-18 10:03 | NUR ---
Patient continues to report nausea and was given her zofran prior to her breakfast this morning. Patient only ate 3 bites of eggs, 2-3 bites of her banana and would only drink 1/2 of her apple juice this morning. She was given a tums this morning, but did not want to take it. She is currently at group therapy at this time. She was a max two assist with pivot transfer to the [facility] and [place] [facility] [place]. Patient requires assistance with wiping and pulling pants up and down due to her right arm/hand weakness. This nurse placed a call to dietary regarding concerns of weight loss. Speech Therapy assessed patient yesterday and will follow up with her again the beginning of next week.
--- NOTE | 2020-07-18 11:45 | NUR ---
Patient reports that when she is up and out of bed she feels better. She likes to be in her wheelchair. This nurse spoke with dietary and they are okay with her family bringing her in food to eat from home.
--- NOTE | 2020-07-18 12:51 | NUR ---
Patient given nausea medicine prior to taking her afternoon pills. Patient has family bringing by some food from home for her to eat today. Patient ate celery and peanut butter as well as her yogurt. Will continue to monitor.
--- NOTE | 2020-07-18 16:14 | NUR ---
Patient resting in bed, call light in reach and bed alarm set. Patient sleeping at this time. Will continue to monitor.
[2020-07-18 16:32] VITALS: BP 145/61; PULSE 94; TEMP 98.7
--- NOTE | 2020-07-18 20:07 | NUR ---
PT JUST WOKE UP FROM SHORT NAP. DENIES PAIN AT THIS TIME. FEELS IT IS THE PAIN MED CAUSING NAUSEA. VANCOMCING CONTINUES INFUSING PER PICC. NAUSEA BETTER TODAY. CALL LIGHT IN REACH. BED ALARM SET.
[2020-07-19 06:44] VITALS: BP 148/80; PULSE 96; TEMP 98.8
[2020-07-19 16:53] VITALS: BP 167/48; PULSE 90; TEMP 98.8
--- NOTE | 2020-07-19 19:26 | NUR ---
Patient woke up this morning and ate small amount of breakfast. Patient has not had any nausea since she stopped taking the Percocet. Patient was given Tylenol with good effect today. Patient's family brought some food for patient to eat. The nursing staff has been directed on this. Patient ate caulflower and celery this afternoon and ate a half a can of soup. Patient is tolerating the antibiotics, but requiring loperimide to help with soft formed/semi loose stools. Patient had a slight weight gain of .4 kg since yesterday. Will have nurse talk with Dietary tomorrow about changing patient to a regular diet so that she will eat more. Her bottom is still red and blanchable, she has one bruised area to her left cheek. Applied barrier cream and then patient purchased a ring cushion to lie and sit down on to prevent further possible wounds from developing. This has been effective. Patient was feeling gassy this evening and was given prn gas meds. She ate celery with peanut butter for supper this evening. This nurse reported off to night nurse.
--- NOTE | 2020-07-19 21:00 | NUR ---
PT TALKING ON PHONE TO FAMILY. GOOD [employer]ITS. PT DENIES NAUSEA OR PAIN. CALL LIGHT IN REACH. BED ALARMS SET.
[2020-07-20 05:20] VITALS: BP 179/93; PULSE 96; TEMP 98.5
--- NOTE | 2020-07-20 06:02 | NUR ---
ACCUCCHECK 69. TOOK JUICE. ASYMPTOMATIC.
--- NOTE | 2020-07-20 06:03 | NUR ---
RT ARM STILL 3RD SPACE EDEMA ELEVATE ON PILLOWS. ICE PACK APPLIED.
[2020-07-20 06:45] LABS: BASO # 0.1 (0.0-0.2); BASO % 0.8 % (0.0-2.0); EOS # 0.5 (0.0-0.7); EOS % 5.5 % (0-4.0); GRAN # 6.5 (1.4-6.5); GRAN % 78.2 % (42.2-75.2); LYMPH # 0.6 (1.2-3.4); LYMPH % 7.4 % (20.0-51.0); MEAN CELL VOLUME 99 fl (80.0-100.0); MEAN CORPUSCULAR HGB CONC 32 g/dl (33.0-37.0); MEAN PLATELET VOLUME 8.3 fl (7.4-10.4); MONO # 0.6 (0.1-0.6); MONO % 7.7 % (1.7-9.3); PLATELET COUNT 511 K/mm3 (130-400); RED BLOOD COUNT 2.85 M/mm3 (4.10-5.30); REDCELL DISTRIBUTION WIDTH-CV 17.7 % (11.5-14.5)
[2020-07-20 06:55] LABS: C-REACTIVE PROTEIN 2.2 mg/dL (0.0-0.9); CALCIUM 8.1 mg/dL (8.4-10.2); CREATININE, serum 0.66 (0.52-1.25); MAGNESIUM 1.7 mg/dL (1.6-2.3); POTASSIUM 3.6 mmol/L (3.4-5.0)
--- NOTE | 2020-07-20 07:02 | NUR ---
PT SLEEPING IN BED AT BEDSIDE SHIFT REPORT. BED ALARM ON, CALL LIGHT WITHIN REACH.
[2020-07-20 07:35] LABS: HEMATOCRIT 28.1 % (37.0-47.0); HEMOGLOBIN 8.9 g/dl (12.5-16.0); MEAN CORPUSCULAR HEMOGLOBIN 31 pg (27.0-31.0)
--- NOTE | 2020-07-20 12:47 | NUR ---
PT'S BLE DRESSINGS CHANGED. NO DRAINAGE, REDNESS, INCREASED SWELLING, OR WARMTH NOTED. PT'S SKIN UNDER DRESSINGS AND AROUND INCISION WERE DRY SO LOTION APPLIED. AQUACELL AG, KERLIX, AND SHAQ WRAPPED APPLIED BILATERALLY. PT ABLE TO TRANSFER TO AND BSC TODAY A SBA WITH SLIDE BOARD. PT ABLE TO DO ALL OF THE WORK, JUST SUPERVISION REQUIRED FOR SAFETY.
--- NOTE | 2020-07-20 16:11 | NUR ---
SW attempted to meet with the patient to follow up after the weekend. The patient was sleeping.
[2020-07-20 17:08] VITALS: BP 149/71; PULSE 86; TEMP 98.6
--- NOTE | 2020-07-20 18:27 | NUR ---
PT C/O MILD PAIN TO RUE TODAY AND REQUESTED PRN APAP AROUND NOON. PT TOLERATING SBA SLIDE BOARD TRANSFERS WELL. PT CONTINUES NOT TO EAT MUCH AT ALL. HAS EATEN CELERY AND 2/3 OF CHICKEN NOODLE SOUP TODAY. PLANS ON EATING ANOTHER HALF OF CHICKEN NOODLE FOR DINNER.
--- NOTE | 2020-07-20 20:22 | NUR ---
Patient laying in bed and watching TV upon enter the room. Patient alert and oriented. Denies any pain or discomfort. Assisted patient to use bed-side commode at 1945 pm. Stand-by assist provided for transfer. Patient tolerating to use SBA slide board to transfer self. Large loose stool noted. All scheduled meds given per JUL. Held Stella haskins for loose stool. Call light within reach. Patient denies any needs at this time.
--- NOTE | 2020-07-21 06:19 | NUR ---
Patient had loose BM x1 at 05:30 am. BS 63 this morning. Patient is asymptomatic for hypoglycemia. 4 oz of apple juice offered at 06:15 am. PRN Tylenol given at 06:15 am for c/o right arm pain 01/05. Offered ice water per patient request. Call light within reach. Patient denies further needs at this time.
[2020-07-21 06:26] VITALS: BP 157/69; PULSE 63; TEMP 98.3
--- NOTE | 2020-07-21 06:53 | NUR ---
PT SLEEPING IN BED AT BEDSIDE SHIFT REPORT. PRN TYLENOL GIVEN PRIOR TO SHIFT REPORT THIS AM.
--- NOTE | 2020-07-21 11:47 | NUR ---
PT FEELING NAUSEOUS AFTER GROUP THERAPY THIS AM. PT ATE SOME CELERY AND PEANUT BUTTER PER SELF REPORT FOR BREAKFAST. THIS NURSE DID NOT WITNESS THIS. PT EDUCATED THAT SHE CAN FEEL NAUSEOUS WHEN HER STOMACH IS SO EMPTY AND SHE NEEDS TO TRY TO EAT. PT'S BS WAS ALSO 69 POSSIBLY SYMPTOMATIC OF THIS. PT AGREED TO DRINK APPLE JUICE. REFUSED FOOD AT THIS TIME. PT GIVEN PRN ZOFRAN. CAP TO PICC LINE CHANGED THIS AM.
--- NOTE | 2020-07-21 15:30 | NUR ---
The patient may be able to d/c Monday, 07/24, and the team would like to do some training with the patient's daughter. SW attempted to contact the patient's daughter, Deyanira. The patient's daughter, Apurva, answered. Apurva provided SW with Deyanira's phone number [phone]. LIBERTY attempted to contact Deyanira. LIBERTY left her a voicemail.
--- NOTE | 2020-07-21 16:25 | NUR ---
LIBERTY met with the patient to follow up and discuss having her daughter come in for training. The patient states that her daughter works and would probably not being able to come in. The patient states that her daughter's car is not reliable and that her would probably have to bring her here. The patient then contacted her , Gerber. Gerber was on speaker phone. Gerber reports that he is not sure what time Deyanira works and if he would be able to bring her up here. Deyanira then contacted the patient and the patient took the call. Deyanira was on speaker phone. Deyanira reports she works from [phone] tomorrow and works at [phone] on . She works in [employer]. Deyanira reports that she will be off on Monday. LIBERTY updated IPR Director.
[2020-07-21 16:53] VITALS: BP 148/65; PULSE 89; TEMP 98.3
--- NOTE | 2020-07-21 18:05 | NUR ---
PT RECEIEVED PRN TYLENOL TWICE THIS SHIFT, WELL ZOFRAN TWICE. PT ALSO HAD TWO INCONTINENT SEMI-LOOSE/FORMED STOOLS AND RECIEVED PRN IMODIUM. PT WAS MADE MOD-I IN ROOM WITH SLIDE BOARD TRANSFERS. BSC SET UP AT BEDSIDE WELL . PT ATTEMPTED TO EAT MORE TODAY 2 BITES OF MAC AND CHEESE AT LUNCH AND DINNER AND A FULL MILK SHAKE AT LUNCH AND A SMALL ONE AT DINNER.
--- NOTE | 2020-07-22 14:00 | NUR ---
Dressing changed to bilateral lower extremities. 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 No drainage observed, tip are intact, no redness or swelling observed. Left lower extremity incision healing well. No redness. Old bloody dried drainage is visible, but no current drainage observed. No swelling to the area. Dressings were changed using Aquacel AG over incisions with 4x4's and then secured with kerlix wrap and naina wrap. Patient tolerated well. Will continue to monitor.
--- NOTE | 2020-07-22 20:30 | NUR ---
PT RESTING IN BED. WATCHING TV. CHEERFUL. PT MOD I IN ROOM. TRANSFERS WELL TO BSC PER SLIDE BOARD. PT EXCITED ABOUT GOING HOME ON 07/24. VERY MOTIVATED TO COMPLETE TASK PER HERSELF. REMAINS IN ISLOATION FOR MRSA. AIR MATTRESS ON BED TO PROMOTE SKIN INTEGRITY. PICC LINE FLUSHES TO LUE WELL. CALL LIGHT IN REACH. BED ALARM OFF.
[2020-07-23 05:53] VITALS: BP 154/72; PULSE 89; TEMP 98.6
--- NOTE | 2020-07-23 09:26 | NUR ---
*late entry, 07/22/20* LIBERTY met with the patient after the IPR Team Conference and informed her of how the team has set a tentative d/c date for Monday, 07/24, with home health PT/OT. The patient was agreeable to the d/c date. LIBERTY informed her of the team's recommendation for a wheelchair with removeable arms and a slide board to be ordered by social group worker and the tub transfer bench, grab bars in bathroom, and toliet riser to be purchased by you. The patient states that she has wheelchairs and home and her daughter is working on getting the equipment. LIBERTY contacted the patient's daughter, Deyanira, to inform of d/c plan and of the equipment recommendations. The patient states that she already has a slide board and a wheelchair with removeable arms for the patient to use. She states that she is getting the above equipment from [facility] and will have it by Monday. LIBERTY informed the patient of the different home health agencies that go out to [place]. The patient was agreeable to [facility]. LIBERTY contacted and faxed a referral to Anne at [facility]. Anne is running the patient's insurance to check benefits and if she would have any out of pocket costs.
--- NOTE | 2020-07-23 10:12 | NUR ---
Patient working with therapy at this time. Patient denied pain this morning, but following her first therapies she requested some Tylenol to help with right arm pain. Will continue to monitor.
--- NOTE | 2020-07-23 10:41 | NUR ---
Patient's ultrasound results were faxed to IPR earlier this week. Patient's CT scan of her elbow from 06/23/20 in [place] reported know fracture. No MRI had been completed on the right upper extremity.
--- NOTE | 2020-07-23 12:45 | NUR ---
Called Dr. Clifton and was not able to leave a message due to message box being full. Will continue to try to reach him.
--- NOTE | 2020-07-23 13:36 | NUR ---
Call placed to Dr. Clifton and he will review patient's chart. He will consider switching her meds to PO instead of IV. Awaiting for his possible changes.
--- NOTE | 2020-07-23 14:09 | NUR ---
Call placed to Dr. Kelley's office in [place], [place]. Awaiting a return call.
--- NOTE | 2020-07-23 16:18 | NUR ---
Anne, at [facility], reports that they are willing to accept the patient; but that they would not be able to see the patient until she sees her PCP. Anne reports that she contacted [facility] at [facility] and the patient has not been seen by Dr. Nikki Carroll yet. Anne reports that the patient's insurance would cover home health and they approve 40 visits per calender year. She also requested wound care notes. Anne reports that the patient's insurance does not reimburse for wound care and that the patient would have to private pay for her dressing changes. LIBERTY contacted [facility] at [facility]. [facility] reports that Dr. Carroll had never officially accepted the patient. Dr. Carroll is out this afternoon and she needs to check with Dr. Carroll to see if she is willing to accept the patient. LIBERTY staffed with the patient's RN to get information on the wound care. The patient's RN reports that the dressing changes can be purchased at [facility]. LIBERTY faxed the nurses note to Anne at [facility]. LIBERTY met with the patient to update. The patient verbalized understanding and states that she is fine with not being seen by home health until she see's a PCP. She confirms that she thought she was already set up with Dr. Carroll. The patient also states that she already knew that the supplies for her dressing changes could be purchased at [facility] and would be able to do this. Awaiting response for Dr. Carroll.
[2020-07-23 17:26] VITALS: BP 152/72; PULSE 89; TEMP 98.6
--- NOTE | 2020-07-23 20:03 | NUR ---
Follow up appointments were made for patient, see discharge appointments. Dr. Clifton did put in a note regarding patient's IV meds. This was reported to night nurse and she will make sure it gets passed along to Dr. Schuler that Dr. Clifton was okay with patient switching from IV meds to PO meds. Awaiting SW to verify which PCP accepted her. Once this is determined the nurse tomorrow can set up the follow up visit. Patient attended all therapies and reported that her car transfer went very well. Patient has been independent with toileting and dressing today. Patient had an episode where she started yelling at her and was getting out of control. Staff went in to settle her down. Patient is currently resting in bed, call light in reach and is independent in her room. Patient uses her slid board to get from bed to BSC and to wheelchair to ambulate around in room. Reported off to night nurse.
--- NOTE | 2020-07-23 21:00 | NUR ---
PT RESTING IN BED. MOD I IN ROOM. REMAINS ISOLATION FOR MRSA. DENIES NEEDS. TRANSFERRING SELF PER SLIDE BOARD TO BSC. NO BM TODAY. DRSGS TO BLE CDI. CALL LIGHT IN REACH. BED ALARM SET.
[2020-07-24 05:45] VITALS: BP 163/80; PULSE 84; TEMP 98.6
--- NOTE | 2020-07-24 07:14 | NUR ---
PT RESTING IN BED AT BEDSIDE SHIFT REPORT. TRANSFERRED SELF TO BSC WITH SLIDE BOARD PRIOR TO SHIFT CHANGE. DISCHARGING TODAY, MOD-I IN ROOM.
[2020-07-24] MEDS ORDERED: CEPHALEXIN500 M1 PO (09:13)
[2020-07-24] MEDS ORDERED: MONODOX100 PO (09:13)
[2020-07-24] MEDS ORDERED: PLAVIX 75MG TAB75 MG PO (09:14)
[2020-07-24] MEDS ORDERED: FERRO-TIME325 MG PO (09:14)
[2020-07-24] MEDS ORDERED: LIPITOR 80MG80 MG PO (09:15)
[2020-07-24] MEDS ORDERED: COREG12.5 MG PO (09:15)
[2020-07-24] MEDS ORDERED: ZESTRIL 20MG TA20 MG PO (09:15)
[2020-07-24] MEDS ORDERED: NEURONTIN100 MG/CAP PO (09:16)
[2020-07-24] MEDS ORDERED: PROTONIX 40MG T40 MG PO (09:17)
[2020-07-24] MEDS ORDERED: ZOFRAN ODT4 MG PO (09:17)
[2020-07-24] MEDS ORDERED: MAG-OX 400400 MG/TAB PO (09:19)
--- NOTE | 2020-07-24 10:43 | NUR ---
Leila, welder fitter gas, at [facility] reports that Dr. Nikki Carroll has accepted the patient and that she is able to see the patient on Monday, 07/28, at 1245. LIBERTY informed the patient's RN of the appointment. LIBERTY then contacted and updated Anne at [facility]. Anne reports that she heard back from her cisco administrator last night and they are not able to take [employer] at this time and will have to decline the patient. LIBERTY contacted [facility]. Cierra, at [facility], reports that they can take [employer] and will take the patient. LIBERTY faxed the referral and d/c orders to Cierra at [facility]. Cierra reports that they will supply the dressing changes, but asked that we provide a lot of the supplies to the patient when she leaves. LIBERTY updated the patient's RN on the above information. LIBERTY met with the patient, her , and daughter and updated them on the above information. They were agreeable to the plan. No additional needs at this time.
--- NOTE | 2020-07-24 12:08 | NUR ---
PT HEALTH SUMMARY, DISCHARGE SUMMARY, AND HOME MES PRINTED ANF REVIEWED WITH PT AND , LEONARD. STRESSED IMPORTANCE OF FU APPTS. REVIEWED MEDS, ALL OF WHICH WERE SENT TO PHARMACY OF CHOICE. BELONGINGS GATHERED BY FAMILY AND STATEMENT CLERK INCLUDING PHONE AND ASSISTED LIVING ADMINISTRATOR. PT TRANSPORTED VIA WC BY STATEMENT CLERK AND SEATBELTED FOR RIDE HOME. PT AND RELATION DENIED QUESTIONS.
--- NOTE | 2020-07-24 12:11 | NUR ---
DRSG TO BLE CHANGED TODAY PRIOR TO DISCHARGE. ORTHOPEDIC OFFICE CALLED TO VERIFY ORDERS FOR DRESSING NOT CALLED BACK PRIOR TO DISCHARGE. 2 DRSG CHANGES WERE SENT HOME WITH PT. 4 KERLIX, 4X4, 2 AQUACELL AG PACKAGES, 2 SHAQ WRAPS. INCISION SITES ARE WELL APPROXIMATED. NO DRAINAGE NOTED, NO INCREASED WARMTH, REDNESS, EDEMA.
[2020-07-24] MEDS ORDERED: GLUCOPHAGE1000 MG PO (12:57)
--- NOTE | 2020-07-27 13:55 | NUR ---
Discharge QIM scores were reviewed by the team. Code of 5 chosen for toilet hygiene was determined by team discussion to be the most usual performance for this patient during the assessment period. Code of 6 chosen for upper body dressing was determined by team discussion to be the most usual performance for this patient during the assessment period. Code of 6 chosen for lower body dressing was determined by team discussion to be the most usual performance for this patient during the assessment period. Code of 6 for chair/bed to chair transfers was determined by team discussion to be the most usual performance for this patient during the assessment period.--Echo Champagne, PD
[2021-02-04] VITALS (86 sets, daily range): O2SAT 92–100
[2021-02-04] MEDS ORDERED: GLUCOTROL 5M5 MG/TAB PO (03:45)
[2021-02-04] MEDS ORDERED: PRINIVIL10 MG PO (03:47)
[2021-02-04] MEDS ORDERED: FERROUSAL325 MG PO (07:42)
[2021-02-04] MEDS ORDERED: ZOFRAN 4MG T4 MG/TAB PO (07:43)
[2021-02-04] MEDS ORDERED: NITROSTAT0.4 MG/TAB SL (07:43)
[2021-02-04] MEDS ORDERED: PROBIOTIC BLEN1 EACH PO (07:47)
[2021-02-04] MEDS ORDERED: MASON NATURAL2000 IU PO (07:48)
[2021-02-04] MEDS ORDERED: JANUVIA 100MG100 MG PO (07:49)
[2021-02-04] MEDS ORDERED: NEXIUM 20MG20 MG PO (07:50)
== END 2020-07-24 11:30 | disposition home health service (06) | DRG 560 ==
PROVIDERS: Internal Medicine Infectious Disease; Nurse Practitioner Family; Physician Assistant; Student in an Organized Health Care Education/Training Program; ADMIT Internal Medicine
DX: Z47.81 Encounter for orthopedic aftercare following surgical amputation (principal); I50.22 Chronic systolic (congestive) heart failure; E11.52 Type 2 diabetes mellitus with diabetic peripheral angiopathy with gangrene; I96 Gangrene, not elsewhere classified; E11.42 Type 2 diabetes mellitus with diabetic polyneuropathy; L89.150 Pressure ulcer of sacral region, unstageable; I25.10 Atherosclerotic heart disease of native coronary artery without angina pectoris; I11.0 Hypertensive heart disease with heart failure; K21.9 Gastro-esophageal reflux disease without esophagitis; D64.9 Anemia, unspecified; E83.42 Hypomagnesemia; R11.2 Nausea with vomiting, unspecified; T40.415A Adverse effect of fentanyl or fentanyl analogs, initial encounter; R19.7 Diarrhea, unspecified; Y92.239 Unspecified place in hospital as the place of occurrence of the external cause; R52 Pain, unspecified; Z79.84 Long term (current) use of oral hypoglycemic drugs; Z79.891 Long term (current) use of opiate analgesic; Z79.82 Long term (current) use of aspirin; Z89.511 Acquired absence of right leg below knee; Z89.029 Acquired absence of unspecified finger(s); Z89.422 Acquired absence of other left toe(s); Z95.820 Peripheral vascular angioplasty status with implants and grafts; Z95.5 Presence of coronary angioplasty implant and graft; Z88.1 Allergy status to other antibiotic agents; Z88.2 Allergy status to sulfonamides
CPT/HCPCS: 99223-AI; 99231-AI; 99232-AI; 99239; J1815; J2270; J2405; J2543; J3370; J3475; J7050